=== PATIENT | male | born 1980 | race Caucasian/White ===

== ENCOUNTER 2018-12-30 14:07 | Emergency (ER) | payer SELFPAY ==
[~2018-12-30] VITALS: Ht 182.9 cm; Wt 109.8 kg
[2018-12-30 14:42] VITALS: BP 129/73
--- NOTE | 2018-12-30 14:53 | NUR ---
BIB SELF C/O R UPPER BACK PAIN X 5 DAYS. DENIES RECENT TRAUMA/INJURY. PAIN EXACERBATED BY MOVEMENT/EXERTION. PT A&OX4, BREATHING EVEN AND UNLABORED. AWAITING ER PROVIDER EVALUATION.
[2018-12-30] MEDS ORDERED: KETOROLAC 60 MG/2 ML VIAL IM ONE (15:25)
[2018-12-30] MEDS ORDERED: ONDANSETRON 4 MG ODT PO ONE (15:30)
--- NOTE | 2018-12-30 15:31 | NUR ---
[facility]
--- NOTE | 2018-12-30 15:32 | NUR ---
PT TAKEN TO CT VIA [facility]
[2018-12-30 15:52] LABS: BASOPHILS % (AUTO) 0.5 % (0.0-2.0); EOSINOPHILS # (AUTO) 0.1 K/uL (0-0.4); EOSINOPHILS % (AUTO) 1.1 % (0.0-4.0); HEMATOCRIT 45.1 % (36-52); HEMOGLOBIN 15.1 g/dL (12.0-18.0); LYMPHOCYTES # (AUTO) 2.8 K/uL (2.0-11.5); LYMPHOCYTES % (AUTO) 31.7 % (20.5-51.1); MEAN CORPUSCULAR HEMOGLOBIN 27 pg (27-31); MEAN CORPUSCULAR HGB CONC 34 g/dL (33-37); MEAN CORPUSCULAR VOLUME 81.4 fL (80-94); MONOCYTES # (AUTO) 0.7 K/uL (0.8-1.0); NEUTROPHILS # (AUTO) 5.2 K/uL (1.8-7.7); NEUTROPHILS % (AUTO) 58.7 % (42.2-75.2); PLATELET COUNT (AUTO) 244 K/uL (140-450); RED BLOOD CELL COUNT(AUTO) 5.53 MIL/uL (4.20-6.10); RED CELL DISTRIBUTION WIDTH 13.1 % (11.6-13.7); WHITE BLOOD COUNT (AUTO) 8.8 K/uL (4.8-10.8)
[2018-12-30 15:58] LABS: ANION GAP 11.8 (8-16); CARBON DIOXIDE 29.1 mmol/L (21-32); CREATININE 1.1 mg/dL (0.7-1.3); POTASSIUM 3.9 mmol/L (3.5-5.1)
[2018-12-30 16:04] LABS: ALBUMIN 4.1 g/dL (3.4-5.0); TOTAL BILIRUBIN 0.3 mg/dL (0.0-1.0)
--- NOTE | 2018-12-30 16:06 | NUR ---
CT COMPLETED WITHOUT INCIDENT. PT AMBULATED TO RESTROOM AND BACK TO [facility] WITH STEADY GAIT, DARK YELLOW URINE SPECIMEN SENT TO LAB.
[2018-12-30 16:23] LABS: APPEARANCE,URINE HAZY (CLEAR); BILIRUBIN,URINE NEGATIVE (NEGATIVE); BLOOD, URINE 2+ (NEGATIVE); COLOR,URINE YELLOW (YELLOW); LEUKOCYTE ESTERASE ,URINE NEGATIVE (NEGATIVE); NITRITE, URINE NEGATIVE (NEGATIVE); PH,URINE 5.5 (5.0-9.0); RBC,URINE 11-20 (MOD) /HPF (0-5); UGLUCOSE NEGATIVE (NEGATIVE); WBC,URINE 0-5 /HPF (0-5)
--- NOTE | 2018-12-30 16:33 | NUR ---
PT HAS BEEN RE-EVALUATED BY PROVIDER
--- NOTE | 2018-12-30 16:39 | NUR ---
RUQ BACK PAIN DECREASED 02/13. NO N/V. AWAITING DISPOSITION.
[2018-12-30 16:49] VITALS: BP 120/88
--- NOTE | 2018-12-30 16:50 | NUR ---
Patient discharged with v/s stable. Written and verbal after care instructions given and explained. Patient alert, oriented and verbalized understanding of instructions. Ambulatory with steady gait. All questions addressed prior to discharge. ID band removed. Patient advised to follow up with PMD. Rx of IBUPROFEN, ZOFRAN, NORCO given. Patient educated on indication of medication including possible reaction and side effects. Opportunity to ask questions provided and answered. COPIES OF LABS AND CT REPORT GIVEN.
== END 2018-12-30 16:50 | disposition home or self-care (01) ==
LOC: MED 14:07
DX: N20.0 Calculus of kidney (principal)
CPT/HCPCS: 36415; 74176; 80053; 81001; 82150; 83690; 85025; 96372; 99284; J1885; Q0162